=== PATIENT | male | born 1970 | race Caucasian/White ===

== ENCOUNTER → 2020-08-27 | Outpatient (CLI) | payer BC | LOC: ECHO 11:00 | DX: R07.9 Chest pain, unspecified (principal); I10 Essential (primary) hypertension; I50.31 Acute diastolic (congestive) heart failure | CPT/HCPCS: ECHO; 93306 ==

== ENCOUNTER → 2021-06-30 | Day surgery (SDC) | payer BC ==
[~2021-06-30] MED LIST: PROTONIX 40 MG40 M1 PO; TENORMIN 25 MG25 MG PO
== END | disposition home or self-care (01) ==
LOC: OR 06:18
DX: K31.9 Disease of stomach and duodenum, unspecified (principal); K29.50 Unspecified chronic gastritis without bleeding; K64.0 First degree hemorrhoids; I10 Essential (primary) hypertension; K21.9 Gastro-esophageal reflux disease without esophagitis; F17.290 Nicotine dependence, other tobacco product, uncomplicated; F10.10 Alcohol abuse, uncomplicated; Z80.0 Family history of malignant neoplasm of digestive organs; Z88.6 Allergy status to analgesic agent; Z88.3 Allergy status to other anti-infective agents; Z79.899 Other long term (current) drug therapy; Z20.822 Contact with and (suspected) exposure to COVID-19
CPT/HCPCS: J2001; J2704; J7040